=== PATIENT | male | born 1980 | race Caucasian/White ===

== ENCOUNTER 2025-02-11 06:25 | Day surgery (SDC) | payer BC, SELFPAY | END 2025-02-11 12:46 | disposition home or self-care (01) | LOC: GI 06:25 | PROVIDERS: ATTENDING PHYSICIAN Student in an Organized Health Care Education/Training Program | DX: Z12.11 Encounter for screening for malignant neoplasm of colon (principal); K63.5 Polyp of colon; K57.30 Diverticulosis of large intestine without perforation or abscess without bleeding; K62.89 Other specified diseases of anus and rectum; K22.70 Barrett's esophagus without dysplasia; K29.70 Gastritis, unspecified, without bleeding; R12 Heartburn; Z80.0 Family history of malignant neoplasm of digestive organs | CPT/HCPCS: 45380; 43239; 88305; 88342 ==

== ENCOUNTER 2025-04-26 06:37 | Day surgery (SDC) | payer BC, SELFPAY | END 2025-04-26 09:25 | disposition home or self-care (01) | LOC: GI 06:37 | PROVIDERS: ATTENDING PHYSICIAN Student in an Organized Health Care Education/Training Program | DX: K22.70 Barrett's esophagus without dysplasia (principal); K21.00 Gastro-esophageal reflux disease with esophagitis, without bleeding | CPT/HCPCS: 43239; 88305 ==

== ENCOUNTER 2025-07-01 06:29 | Day surgery (SDC) | payer BC, SELFPAY | END 2025-07-01 12:20 | disposition home or self-care (01) | LOC: GI 06:29 | PROVIDERS: ATTENDING PHYSICIAN Student in an Organized Health Care Education/Training Program | DX: Z12.11 Encounter for screening for malignant neoplasm of colon (principal); K63.5 Polyp of colon; K62.1 Rectal polyp; K57.30 Diverticulosis of large intestine without perforation or abscess without bleeding; Z86.0100 Personal history of colon polyps, unspecified | CPT/HCPCS: 45380; 88305 ==